=== PATIENT | female | born 1970 | race Caucasian/White ===

== ENCOUNTER 2024-04-08 13:04 | Outpatient (OUT) | payer OTHER, SELFPAY ==
--- NOTE | 2024-04-08 13:05 | VEIN_ITS ---
Patient Name: PRECIOUS BAER MR#: [id number] : 1970 Exam Date: 04/08/2024 Ordering Doctor: DR ASA OROZCO M.D. RADIOLOGY REPORT PROCEDURE: VC EXT VENOUS REFLUX SHADY LMTD COMPARISON: None. INDICATIONS: I83.813 Pain due to varicose veins of bilateral legs TECHNIQUE: Duplex imaging of the lower extremity to assess the deep and superficial venous system for the presence of deep or superficial venous incompetence and to document the location and severity of disease. The study includes evaluation of the great saphenous vein (GSV), anterior accessory saphenous vein (AASV) and small saphenous vein (SSV). Patient scanned in reverse Trendelenburg and standing. FINDINGS: RIGHT LOWER EXTREMITY: Saphenofemoral Junction Reflux: Yes 7.1mm 0.6 sec GSV: Diam (mm) Reflux/ Time (sec) Proximal Thigh 6.3 Yes 1.3 Mid Thigh 3.5 Yes 0.7 Distal Thigh 3.9 Yes 0.5 Prox Calf 3.0 Yes 0.9 Mid Calf 3.5 Yes 0.4 Saphenopopliteal Junction Reflux: 6.6mm Yes 0.7 SSV: Proximal Calf 6.3 Yes 0.5 Mid Calf 2.9 Yes 0.5 AASV: Proximal Thigh 2.9 Yes 0.4 Mid Thigh 2.0 Yes 0.4 Distal Thigh Thrombi: No acute or chronic thrombus. Compressibility: Normal. Flow: Minimal deep venous reflux. Preforator: Mid medial lower leg measures 3.9 mm with 1.8s reflux. Tech Note: Incompetent varicose vein medial knee measures 4.0 mm with 0.5s reflux. LEFT LOWER EXTREMITY: Saphenofemoral Junction Reflux: Yes 7.8 mm 1.6 sec GSV: Diam (mm) Reflux/Time (sec) Proximal Thigh 6.4 Yes 0.6 Mid Thigh 4.6 Yes 0.3 Distal Thigh 4.4 Yes 0.9 Prox Calf 2.7 Yes 0.6 Mid Calf 2.2 Yes 0.4 Saphenopopliteal Junction Relux: 2.6 mm No SSV: Proximal Calf 1.8 Yes 0.4 Mid Calf 2.5 No AASV: Not present Proximal Thigh Mid Thigh Distal Thigh Thrombi: No acute or chronic thrombus. Compressibility: Normal. Flow: Mild deep venous reflux. 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 Tech Note: Incompetent varicose vein mid medial lower leg measures 4.1 mm with 0.7s reflux. Varicose vein proximal medial lower leg measures 4.0 mm with 0.5s reflux. CONCLUSION: 1. Mild bilateral great saphenous vein venous insufficiency with dilatation and saphenofemoral junction reflux 2. Borderline venous insufficiency right small saphenous vein 3. Bilateral incompetent varicose veins Dictated by: Asa Orozco MD on 04/08/2024 at 14:05 Approved by: Asa Orozco MD on 04/08/2024 at 14:08
--- NOTE | 2024-04-08 13:05 | VEIN_ITS ---
Patient Name: PRECIOUS BAER MR#: [id number] : 1970 Exam Date: 04/08/2024 Ordering Doctor: DR ASA OROZCO M.D. RADIOLOGY REPORT PROCEDURE: [facility] - OFFICE VISIT INITIAL COMPARISON: None. PROGRESS NOTES: 53-year-old female who presents with a 45 year history of lower extremity pain swelling and varicose veins. The patient's left leg pain is significantly worse than the right. The patient rates pain as a 7 on a scale of 1-10. 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 The patient's symptoms are only partially relieved by rest, leg elevation and over the counter ibuprofen which she takes on a daily basis. The patient was counseled on excessive use of ibuprofen as it relates to renal insufficiency. The patient denies any signs and symptoms to suggest arterial ischemia. The patient describes a family history significant for cancer in her mother. Varicose veins in her mother and maternal grandmother. . Patient drinks alcohol occasionally. The patient has never smoked. No illicit drug use. The patient's current medical conditions are significant for hypothyroidism in our deficiency anemia. The patient is currently on Synthroid. Past surgical history significant for endometrial ablation and breast augmentation. No history of deep venous thrombus or pulmonary embolus. See separate history and physical for medication list. No prior treatment for varicose or spider veins. The patient has used compression stockings on and off for several years. After review of nurse notes, history and physical exam I discussed at length the pathophysiology of venous hypertension and possible treatments, therapies and strategies available. We discussed at length the importance of elevating the lower extremities above the level of the heart, increased physical activity and compression stocking use. I discussed with the patient that her right leg is significantly worse than the left in terms of venous disease however her symptoms are worse on the left. Given the mild venous insufficiency, I cannot correlate the patient's symptoms with the venous disease. The patient was given the option of treatment of the right great saphenous vein to evaluate clinical improvement or to follow-up in 12-24 months. We also discussed injection sclerotherapy. Ultrasound venous reflux study performed the same day was discussed at length with the patient. The report demonstrates mild bilateral great saphenous vein venous insufficiency with dilatation saphenofemoral junction reflux. Borderline right small saphenous vein venous insufficiency. Bilateral incompetent varicose veins. PHYSICAL EXAM: The right leg demonstrates scattered varicose, reticular and spider veins. Minimal subcutaneous edema of the ankle. No skin discoloration. No active ulceration. The left leg demonstrates scattered varicose, reticular and spider veins. Minimal subcutaneous edema of the ankle. No skin discoloration. No active ulceration. Both thighs, legs and feet were symmetrically warm to the touch. Good posterior tibial and dorsalis pedis pulses were present bilaterally. VEIN/VC Facility EST Comprehensive IMPRESSION: 1. Mild bilateral great saphenous and mild right small saphenous vein venous insufficiency 2. Mild bilateral lower extremity in, varicose veins 3. Mild bilateral ankle subcutaneous edema 4. No definite flow significant arterial disease 5. CEAP: C3, Ep, As, Pr PLAN: 1. Endovenous laser ablation of the right great saphenous vein versus watchful waiting with follow-up in 12-24 months 2. Long-term use of bilateral knee or thigh-high 20-30 mm compression stockings 3. Injection sclerotherapy for reticular and spider veins 4. Elevated legs and continued physical activity for symptomatic relief Nurse notes, history and physical were reviewed and confirmed, see attached forms. The nurse was present throughout the physical exam and consultation Dictated by: Asa Orozco MD on 04/08/2024 at 14:28 Approved by: Asa Orozco MD on 04/08/2024 at 14:33
== END 2024-04-08 13:05 | disposition home or self-care (01) ==
PROVIDERS: PCP Radiology Diagnostic Radiology; Visit Provider Radiology Diagnostic Radiology
DX: I83.813 Varicose veins of bilateral lower extremities with pain (principal)
CPT/HCPCS: 93970; G0463